=== PATIENT | female | born 1955 | race Caucasian/White ===

== ENCOUNTER → 2018-03-02 | Outpatient (CLI) | payer OTHER ==
[2018-03-02 18:00] LABS: BASO # 0.1 10^3/uL (0.0-0.2); BASO % 0.6 % (0.0-1.0); EOS # 0.2 10^3/uL (0.0-0.50); EOS % 2.6 % (0.0-3.0); HEMATOCRIT 45.3 % (36.0-47.0); HEMOGLOBIN 14.7 g/dl (12.0-15.5); IMMATURE GRANULOCYTE % 0.6 % (0-3.0); LYMPH # 1.6 10^3/uL (1.5-4.5); LYMPH % 19.1 % (24.0-44.0); MEAN CORPUSCULAR HEMOGLOBIN 31.3 pg (27.0-33.0); MEAN CORPUSCULAR HGB CONC 32.5 g/dl (32.0-36.5); MEAN CORPUSCULAR VOLUME 96.6 fl (80.0-96.0); MONO # 0.9 10^3/uL (0.0-0.8); MONO % 10.4 % (0.0-5.0); NEUTROPHILS # 5.7 10^3/uL (1.8-7.7); NEUTROPHILS % 66.7 % (36.0-66.0); PLATELET COUNT, AUTOMATED 270 10^3/uL (150-450); RED BLOOD COUNT 4.69 10^6/uL (4.00-5.40); RED CELL DISTRIBUTION WIDTH 14.1 % (11.5-14.5); WHITE BLOOD COUNT 8.5 10^3/uL (4.0-10.0)
== END ==
LOC: M ADAMS 09:08
DX: J20.9 Acute bronchitis, unspecified (principal); K44.9 Diaphragmatic hernia without obstruction or gangrene
CPT/HCPCS: 85025

== ENCOUNTER → 2019-10-18 | Outpatient (CLI) | payer BC, OTHER ==
--- NOTE | 2019-10-19 09:40 | REP ---
CHEST PA AND LATERAL: 10/18/2019, COMPARISON: 03/02/2018 CLINICAL HISTORY: Cough. FINDINGS: Two views show the lung fry adequately inflated. There is no pleural effusion, acute infiltrate, atelectasis, or mass. Heart is not enlarged. There is no hilar mass. 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 Bony thorax shows no compression deformity or focal lesion. Airway intact. IMPRESSION: 1. 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 Electronically Signed by Constantine River MD 10/19/2019 10:20 A
== END ==
LOC: M ADAMS 15:07
PROVIDERS: ATTEND Physician Assistant
DX: R05 Cough (principal)

== ENCOUNTER → 2020-08-02 | Outpatient (CLI) | payer MEDICARE, BC, OTHER | LOC: M LABSMTC 10:17 | PROVIDERS: ATTEND Family Medicine | DX: Z20.828 Contact with and (suspected) exposure to other viral communicable diseases (principal) ==